=== PATIENT | female | born 1950 | race Caucasian/White ===

== ENCOUNTER 2020-02-05 11:51 | Emergency (ER) | payer MEDICARE, BC ==
[2020-02-05] MEDS ORDERED: HYDROmorphone 0.5 MG/0.5 ML Syringe IVPUSH ONE (12:25)
[2020-02-05] MEDS ORDERED: Sodium Chloride 0.9% 10 ML Syringe FLUSH PRN (12:25)
[2020-02-05] MEDS ORDERED: Ondansetron 4 MG/2 ML SDV IVPUSH ONE (12:30)
--- NOTE | 2020-02-05 12:31 | EDM.PDOC ---
ED HPI GENERAL MEDICAL PROBLEM - General Chief Complaint: Upper Extremity Injury/Pain Stated Complaint: FELL AT CABIN Time Seen by Provider: 02/05/20 12:15 Source of Information: Reports: Patient, Old Records History Limitations: Reports: Other (patient not a great historian) - History of Present Illness INITIAL COMMENTS - FREE TEXT/NARRATIVE: 69 yo female was getting into her vehicle and was holding onto the car door with one hand and the roof of the car with the other when her legs slipped out from under her on the ice. Presents with resulting R shoulder injury that resulted. Shoulder did not impact the ground. Has a cabin locally. Onset: Today Onset Date: 02/05/20 Onset Time: 11:30 Duration: Minutes: Location: Reports: Upper Extremity, Right Quality: Reports: Ache Severity: Moderate Improves with: Reports: Rest Worsens with: Reports: Movement Context: Reports: Trauma Associated Symptoms: Reports: No Other Symptoms Treatments [employer]: Reports: Other (see below) (none) - Related Data Allergies Allergy/AdvReac Type Severity Reaction Status Date / Time amoxicillin [From Augmentin] Allergy Nausea Verified 02/05/20 12:26 azithromycin Allergy Nausea Verified 02/05/20 12:26 clavulanic acid Allergy Nausea Verified 02/05/20 12:26 [From Augmentin] codeine Allergy Nausea Verified 02/05/20 12:26 hydroxyzine Allergy Cannot Verified 02/05/20 12:26 Remember ketorolac Allergy Nausea Verified 02/05/20 12:26 Home Meds: Home Meds Calcium Citrate/Vitamin D3 [Calcium Citrate - Vit D Caplet] 1 tab PO BID [History] Famotidine 20 mg PO DAILY 02/05/20 [History] Ipratropium [Atrovent 0.06% Nasal [place]] 2 spray GENET ASDIRECTED 02/05/20 [ History] LORazepam [Lorazepam] 0.5 mg PO QID PRN 02/05/20 [History] Losartan/Hydrochlorothiazide [Losartan-HCTZ 50-12.5 MG] 1 tab PO DAILY 02/05/20 [History] Magnesium 200 mg PO DAILY 02/05/20 [History] Warfarin Sodium [Coumadin] 2.5 mg PO ASDIRECTED 02/05/20 [History] Zolpidem [Ambien] 10 mg PO BEDTIME 02/05/20 [History] amLODIPine [Norvasc] 5 mg PO DAILY 02/05/20 [History] Past Medical History Cardiovascular History: Reports: Blood Clots/VTE/DVT, Pacemaker Neurological History: Reports: Other (See Below) Other Neuro History: Fibromyalgia Endocrine/Metabolic History: Reports: Diabetes, Type II Oncologic (Cancer) History: Reports: Other (See Below) Other Oncologic History: Carcenoma - Past Surgical History GI Surgical History: Reports: Appendectomy, Cholecystectomy, Other (See Below) Other GI Surgeries/Procedures: Spleenectomy Female Surgical History: Reports: Hysterectomy Musculoskeletal Surgical History: Reports: Hip Replacement Social & Family History - Tobacco Use Smoking Status *Q: Never Smoker - Caffeine Use Caffeine Use: Reports: Coffee - Recreational Drug Use Recreational Drug Use: No Review of Systems - Review of Systems Review Of Systems: See Below Constitutional: Reports: No Symptoms Musculoskeletal: Reports: Shoulder Pain (Right) Skin: Reports: No Symptoms Neurological: Reports: No Symptoms ED EXAM, GENERAL - Physical Exam Exam: See Below Exam Limited By: No Limitations General Appearance: Alert, WD/WN, No Apparent Distress Eye Exam: Bilateral Eye: Normal Inspection Ears: Normal External Exam, Normal Canal, Hearing Grossly Normal, Normal TMs Ear Exam: Bilateral Ear: Auricle Normal, Canal Normal, TM normal Nose: Normal Inspection, No Blood Throat/Mouth: Normal Lips, Normal Voice, No Airway Compromise Head: Atraumatic, Normocephalic Neck: Normal Inspection Respiratory/Chest: No Respiratory Distress, No Accessory Muscle Use Cardiovascular: Regular Rate, Rhythm Extremities: Normal Inspection, No Pedal Edema, Other (some anterior deltoid pain on palpation, no bony pain. ). No: Normal Range of Motion, Non-Tender Neurological: Alert, Oriented, CN II-XII Intact, Normal Cognition, No Motor/ Sensory Deficits Psychiatric: Normal Affect, Normal Mood Skin Exam: Warm, Dry, Intact, Normal Color, No Rash Course - Vital Signs Text/Narrative:: Fitted with a sling Last Recorded V/S: Last Vital Signs Temp 34.8 C L 02/05/20 12:16 Pulse 56 L 02/05/20 12:16 Resp 16 02/05/20 12:16 BP 231/99 H 02/05/20 12:16 Pulse Ox 99 02/05/20 12:16 - Orders/Labs/Meds Orders: Active Orders 24 hr Category Date Time Status Shoulder Comp Rt [CR] Stat Exams 02/05/20 12:30 Ordered Sodium Chloride 0.9% [Saline Flush] Med 02/05/20 12:25 Active 10 ml FLUSH ASDIRECTED PRN Saline Lock Insert [OM.PC] Routine Oth 02/05/20 12:25 Ordered Medication Orders Sodium Chloride (Saline Flush) 10 ml FLUSH ASDIRECTED PRN PRN Reason: Keep Vein Open Last Admin: 02/05/20 12:35 Dose: 10 ml Meds: Medications Generic Name Dose Route Start Last Admin Trade Name Freq PRN Reason Stop Dose Admin Sodium Chloride 10 ml 02/05/20 12:25 02/05/20 12:35 Saline Flush FLUSH 10 ml ASDIRECTED PRN Administration Keep Vein Open Discontinued Medications Generic Name Dose Route Start Last Admin Trade Name Freq PRN Reason Stop Dose Admin Hydromorphone HCl 0.5 mg 02/05/20 12:25 02/05/20 12:33 Dilaudid IVPUSH 02/05/20 12:26 0.5 mg ONETIME ONE Administration Ondansetron HCl 4 mg 02/05/20 12:30 02/05/20 12:32 Zofran IVPUSH 02/05/20 12:31 4 mg ONETIME ONE Administration - Radiology Interpretation Free Text/Narrative:: R shoulder X-ray- Departure - Departure Time of Disposition: 13:00 Disposition: Home, Self-Care 01 Condition: Fair Clinical Impression: Rotator cuff tear Qualifiers: Rotator cuff tear extent: unspecified tear extent Rotator cuff tear trauma status: traumatic Encounter type: initial encounter Laterality: right Qualified Code(s): S46.011A - Strain of muscle(s) and tendon(s) of the rotator cuff of right shoulder, initial encounter - Discharge Information *PRESCRIPTION DRUG MONITORING PROGRAM REVIEWED*: No *COPY OF PRESCRIPTION DRUG MONITORING REPORT IN PATIENT AMADA: No Instructions: Rotator Cuff Tear Referrals: PCP,None [Primary Care Provider] - Forms: ED Department Discharge Additional Instructions: Wear your sling for support except when bathing. Take ibuprofen and/or acetaminophen as needed for pain relief. Substitute [place] for the acetaminophen if more pain relief is needed. Use Zofran as needed for nausea relief. F/U with your doctor to get an orthopedic referral unless you already have one, then call him directly. Take your X-rays along to your appointment. Sepsis Event Note - Evaluation Sepsis Screening Result: No Definite Risk - Focused Exam Vital Signs: Vital Signs Temp Pulse Resp BP Pulse Ox 02/05/20 12:16 34.8 C L 56 L 16 231/99 H 99 02/05/20 12:11 34.8 C L 56 L 16 231/99 H 99 Date Exam was Performed: 02/05/20 Time Exam was Performed: 12:52 - My Orders Last 24 Hours: My Active Orders 02/05/20 12:25 Sodium Chloride 0.9% [Saline Flush] 10 ml FLUSH ASDIRECTED PRN Saline Lock Insert [OM.PC] Routine 02/05/20 12:30 Shoulder Comp Rt [CR] Stat - Assessment/Plan Last 24 Hours: My Active Orders 02/05/20 12:25 Sodium Chloride 0.9% [Saline Flush] 10 ml FLUSH ASDIRECTED PRN Saline Lock Insert [OM.PC] Routine 02/05/20 12:30 Shoulder Comp Rt [CR] Stat
--- NOTE | 2020-02-05 13:15 | CRLCR ---
Indication: Injury with pain regarding the right shoulder Technique: A total of 6 images of the right shoulder were submitted. Comparison: None Findings: Bone mineral density is decreased. There is no focal lytic or blastic or dislocation identified. The humeral head is high riding which is sometimes seen in chronic rotator cuff disease. There is mild acromioclavicular joint osteoarthritis. There is possible irregularity of the lateral angle of the scapula just below the glenoid. This is an equivocal finding and could be related to a very subtle fracture. A CT should be considered. There is a pacemaker Impression: Questionable abnormality of the inferior glenoid scapula on the lateral side. This might represent a fracture. A CT is advised for further evaluation. Dictated by Nayan Garcia MD @ Feb 05 2020 1:10PM Signed by Dr. Nayan Garcia @ Feb 05 2020 1:14PM
== END 2020-02-05 13:19 | disposition home or self-care (01) ==
LOC: JP.ED 11:51
DX: S46.011A Strain of muscle(s) and tendon(s) of the rotator cuff of right shoulder, initial encounter (principal); E11.9 Type 2 diabetes mellitus without complications; Z86.718 Personal history of other venous thrombosis and embolism; Z88.1 Allergy status to other antibiotic agents; Z88.5 Allergy status to narcotic agent; Z88.8 Allergy status to other drugs, medicaments and biological substances; Z79.899 Other long term (current) drug therapy; W00.0XXA Fall on same level due to ice and snow, initial encounter
CPT/HCPCS: 73030; 96374; 96375; 99283; 99284; J1170; J2405